=== PATIENT | male | born 1965 | race African-American/Black ===

== ENCOUNTER 2019-10-26 06:31 | Emergency (ER) | payer MEDICAID ==
[~2019-10-26] VITALS: Ht 182.9 cm; Wt 97.0 kg
[2019-10-26 07:42] LABS: BASOPHILS % 0.2 % (0.0-2.0); EOSINOPHILS % 0.4 % (0.0-5.0); HEMATOCRIT. 32.1 % (42.0-52.0); HEMOGLOBIN. 11.1 g/dL (14.0-18.0); MEAN CORPUSCULAR HEMOGLOBIN 30.6 pg (28.0-32.0); MEAN CORPUSCULAR VOLUME 88.1 fL (80.0-94.0); MEAN PLATELET VOLUME 7.7 fl (7.4-10.4); MONOCYTES % 7.7 % (2.0-8.0); NEUTROPHILS % 74.7 % (40.0-76.0); PLATELET 242 x1000/uL (130-400); RED BLOOD CELL COUNT 3.64 mill/uL (4.7-6.1); RED CELL DISTRIBUTION WIDTH 13.5 % (11.6-14.6)
[2019-10-26 07:48] LABS: CHLORIDE 111 mEq/L (98-107)
[2019-10-26 07:50] LABS: INR 1.1; PROTHROMBIN TIME 11.1 sec (9.6-11.0)
[2019-10-26] MEDS ORDERED: SODIUM CHLORIDE 0.9% 1,000 ML IV ONE (09:00)
[2019-10-26 09:15] LABS: HEMATOCRIT 32.5 % (42.0-52.0); HEMOGLOBIN 11.1 g/dL (14.0-18.0)
[2019-10-26 11:30] VITALS: BP 134/80
== END 2019-10-26 11:30 | disposition home or self-care (01) ==
LOC: ER 06:31
DX: R05 Cough (principal); K92.2 Gastrointestinal hemorrhage, unspecified; R07.89 Other chest pain; R50.9 Fever, unspecified; F17.290 Nicotine dependence, other tobacco product, uncomplicated; F12.10 Cannabis abuse, uncomplicated; I10 Essential (primary) hypertension; Z98.890 Other specified postprocedural states
CPT/HCPCS: 36415; 71045; 80053; 85014; 85018; 85025; 85610; 86850; 86900; 86901; 93005; 99284; 99406; J7030